=== PATIENT | male | born 2000 | race African-American/Black ===

== ENCOUNTER 2018-05-30 03:07 | Emergency (ER) | payer SELFPAY ==
[~2018-05-30] VITALS: Ht 188 cm; Wt 95.5 kg
[~2018-05-30 03:07] MED LIST: ABILIFY 10MG TA10 MG PO; CATAPRES0.2 MG PO; CLARITIN 1010 MG/TAB PO; CONCERTA36 MG PO; DESYREL 50MG50 MG PO; INTUNIV3 MG PO; NORCO 325 MG-7.1 TAB PO
[2018-05-30 03:11] VITALS: TEMP 97.7
[2018-05-30 03:43] LABS: BASO # 0.1 (0.0-0.2); EOS # 0.6 (0.0-0.7); EOS % 7.5 % (0-4.0); GRAN % 40.4 % (42.2-75.2); HEMATOCRIT 40.6 % (36.0-47.0); HEMOGLOBIN 14.3 g/dl (12.5-16.1); LYMPH # 3.2 (1.2-3.4); LYMPH % 42.8 % (20.0-51.0); MEAN CELL VOLUME 94 fl (80.0-95.0); MEAN CORPUSCULAR HEMOGLOBIN 33 pg (26.0-32.0); MEAN CORPUSCULAR HGB CONC 35 g/dl (33.0-37.0); MEAN PLATELET VOLUME 9.1 fl (7.4-10.4); MONO # 0.6 (0.1-0.6); PLATELET COUNT 296 K/mm3 (130-400); REDCELL DISTRIBUTION WIDTH-CV 11.6 % (11.5-14.5)
[2018-05-30 03:59] LABS: BILIRUBIN,TOTAL 0.4 mg/dL (0.0-1.0); CALCIUM 9.3 mg/dL (8.4-10.2); CREATININE, serum 0.75 mg/dL (0.66-1.25); POTASSIUM 3.8 mmol/L (3.4-5.0)
[2018-05-30 04:12] LABS: COLLECTION METHOD CLEAN CATCH
[2018-05-30 04:17] LABS: PH 6 (5-8); SQUAMOUS EPITHELIAL None Seen /hpf; URINE APPEARANCE Clear; URINE BACTERIA None Seen /hpf; URINE BILIRUBIN Negative (NEGATIVE); URINE BLOOD Negative (NEGATIVE); URINE COLOR Straw; URINE GLUCOSE Negative (NEGATIVE); URINE KETONE Negative (NEGATIVE); URINE LEUKOCYTE ESTERASE Negative (NEGATIVE); URINE NITRATE Negative (NEGATIVE); URINE PROTEIN(semi-quant) Negative (NEGATIVE); URINE RBC None Seen /hpf; URINE UROBILINOGEN Negative (NEGATIVE)
[2018-05-30] MEDS ORDERED: ZOFRAN 4MG T4 MG/TAB PO (04:27)
[2018-05-30 04:50] VITALS: BP 156/100; PULSE 58
== END 2018-05-30 04:50 | disposition home or self-care (01) ==
LOC: COL.ER 03:07
PROVIDERS: Emergency Medicine
DX: R11.2 Nausea with vomiting, unspecified (principal); J01.90 Acute sinusitis, unspecified; B34.9 Viral infection, unspecified; I10 Essential (primary) hypertension; F90.9 Attention-deficit hyperactivity disorder, unspecified type
CPT/HCPCS: J1885; J2405; J7030